=== PATIENT | female | born 2005 | race Caucasian/White ===

== ENCOUNTER 2023-02-02 11:14 | Emergency (ER) | payer BC ==
[2023-02-02] MEDS ORDERED: Ibuprofen 200 MG TAB ONE (11:42)
[2023-02-02 13:09] LABS: Pregnancy Test - Urine (BHCG) Negative (Negative); Pregu Control Background? CLEAR/WHITE (CLR/WHITE); Pregu Control Bar Appear? YES (CONTROL BAR); Specific Gravity 1.015 (1.002-1.036)
== END 2023-02-02 13:52 | disposition home or self-care (01) ==
LOC: CSHERS 11:14
DX: M25.562 Pain in left knee (principal)
CPT/HCPCS: 81025

== ENCOUNTER 2023-03-31 17:53 | Emergency (ER) | payer BC ==
[2023-03-31] MEDS ORDERED: PROPOFOL 20 ML ONE (18:01)
[2023-03-31] MEDS ORDERED: Ketorolac Tromethamine 30 MG/ML VIAL ONE (18:36)
== END 2023-03-31 19:15 | disposition home or self-care (01) ==
LOC: CSHERS 17:53
DX: S83.005D Unspecified dislocation of left patella, subsequent encounter (principal); W18.30XD Fall on same level, unspecified, subsequent encounter
CPT/HCPCS: 27560; 96374; 99152; J1885; J2704